=== PATIENT | male | born 1940 | race Caucasian/White ===

== ENCOUNTER → 2018-01-24 | Outpatient (CLI) | payer MEDICARE, OTHER ==
[~2018-01-24] VITALS: Ht 193 cm; Wt 115.0 kg
[~2018-01-24] MED LIST: ASPI-556 PO; ATEN25TA PO; ATOR40TA28 PO; BICA50TA3 PO; COLC0.6T67 PO; FEBU40T PO; LISI-662 PO; NIFE60TA71 PO; NIFE90TA38 PO; RIVA15T PO; SIMV-261 PO
[2018-01-24 11:15] VITALS: BP 116/64
== END | disposition home or self-care (01) ==
LOC: SRCNTR 11:05
PROVIDERS: ATTEND Internal Medicine Critical Care Medicine
DX: I25.10 Atherosclerotic heart disease of native coronary artery without angina pectoris (principal); I71.4 Abdominal aortic aneurysm, without rupture; C61 Malignant neoplasm of prostate; Z90.79 Acquired absence of other genital organ(s); Z86.711 Personal history of pulmonary embolism
CPT/HCPCS: G0463

== ENCOUNTER → 2020-03-30 | Outpatient (CLI) | payer MEDICARE, OTHER ==
[~2020-03-30] MED LIST changes: +ATEN-73 PO; -ATEN25TA PO; -BICA50TA3 PO; +BICA50TA8 PO; -COLC0.6T67 PO; +COLC0.6T73 PO; +NIFE-39 PO; -NIFE60TA71 PO; -NIFE90TA38 PO; +NIFE90TA63 PO
== END | disposition home or self-care (01) ==
LOC: LABPV 14:43
DX: L03.031 Cellulitis of right toe (principal)
CPT/HCPCS: 87070; 87205